=== PATIENT | female | born 1970 | race Caucasian/White ===

== ENCOUNTER 2017-12-11 16:32 | Emergency (ER) | payer MEDICAID ==
[~2017-12-11] VITALS: Ht 177.8 cm; Wt 117.5 kg
[2017-12-11] MEDS ORDERED: PANTOPRAZOLE 40 MG/10 ML VIAL IV STA (17:57)
[2017-12-11 18:17] LABS: Basophils # (auto) 0 uL; Eosinophils # (auto) 0.1 uL; Hemoglobin 12.3 g/dL (12.2-16.2); Monocytes # (auto) 0.6 uL; Nucleated Red Blood Cells % 0.1 %
[2017-12-11 18:19] LABS: Basophils % (auto) 0.9 % (0.0-2.0); Hematocrit 39.3 % (36.0-46.0); Lymphocytes # (auto) 1.9 uL; Lymphocytes % (auto) 32.4 % (10.0-50.0); Mean Corpuscular Hemoglobin 23.8 pg (28.0-32.0); Mean Corpuscular Hgb Conc. 31.4 g/dL (32.0-36.0); Mean Corpuscular Volume 75.9 fL (80.0-100.0); Monocytes % (auto) 9.8 % (0.0-12.0); Neutrophils # (auto) 3.2 uL; Neutrophils % (auto) 54.9 % (37.0-80.0); Platelet Count (auto) 400 10^3/uL (140-450); Red Blood Cells 5.17 10^6/uL (4.0-5.20); Red Cell Distribution Width 18.3 % (11.8-14.3); White Blood Cell 5.8 10^3/uL (4.4-10.8)
[2017-12-11 18:41] LABS: Alanine Aminotransferase 24 U/L (13-56); Albumin 3.5 g/dL (3.4-5.0); Alkaline Phosphatase 64 U/L (45-117); Anion Gap 7 (5-15); Aspartate Aminotransferase 15 U/L (15-37); BUN/Creatinine Ratio 16.2; Bilirubin, Total 0.2 mg/dL (0.2-1.0); Blood Urea Nitrogen 11 mg/dL (7-18); Calcium 8.7 mg/dL (8.5-10.1); Carbon Dioxide 21 mmol/L (21-32); Chloride 111 mmol/L (98-107); GFR African American 120 mL/min; GFR Non-African American 99 mL/min; Glucose 80 mg/dL (74-106); Magnesium 2.6 mg/dL (1.6-2.6); Potassium 4.2 mmol/L (3.5-5.1); Sodium 139 mmol/L (136-145); Total Protein 7.2 g/dL (6.4-8.2)
[2017-12-11 20:15] VITALS: BP 137/84
== END 2017-12-11 20:22 | disposition home or self-care (01) ==
LOC: ER 16:40
DX: K21.9 Gastro-esophageal reflux disease without esophagitis (principal); F17.210 Nicotine dependence, cigarettes, uncomplicated
CPT/HCPCS: 36415; 71046; 74176; 80053; 83735; 84484; 85025; 93005; 96374; 99285; C9113

== ENCOUNTER 2018-02-20 21:10 | Emergency (ER) | payer MEDICAID ==
[~2018-02-20] VITALS: Ht 177.8 cm; Wt 115.7 kg
[2018-02-20 21:29] VITALS: BP 149/92
[2018-02-20] MEDS ORDERED: LIDOCAINE 2%HCL (LOCAL ANESTH.) INJ 10ml MDV IJ ONE ×2 (22:30)
[2018-02-20] MEDS ORDERED: TRIAMCINOLONE 40MG/ML 1ML VIAL IM ONE (22:30)
[2018-02-20] MEDS ORDERED: LIDOCAINE 2% (LOCAL ANESTH.) PF 5ml SDV ONE (22:33)
== END 2018-02-20 23:08 | disposition home or self-care (01) ==
LOC: ER 21:10
DX: G44.209 Tension-type headache, unspecified, not intractable (principal); F17.210 Nicotine dependence, cigarettes, uncomplicated
CPT/HCPCS: 20552; 99284; J2001; J3301

== ENCOUNTER → 2018-08-05 | Outpatient (CLI) | payer MEDICAID ==
[2018-08-05 10:22] LABS: Urine Bacteria NONE SEEN /hpf (None Seen); Urine Blood 2+ /uL (Negative); Urine WBC 4 /hpf (0 - 5)
[2018-08-05 10:24] LABS: Basophils # (auto) 0 uL; Eosinophils # (auto) 0 uL; Hemoglobin 12.9 g/dL (12.2-16.2); White Blood Cell 3.9 10^3/uL (4.4-10.8)
[2018-08-05 10:25] LABS: Basophils % (auto) 0.1 % (0.0-2.0); Eosinophils % (auto) 0.9 % (0.0-7.0); Hematocrit 39.3 % (36.0-46.0); Lymphocytes # (auto) 1.1 uL; Lymphocytes % (auto) 27.1 % (10.0-50.0); Mean Corpuscular Hemoglobin 25.7 pg (28.0-32.0); Mean Corpuscular Hgb Conc. 32.8 g/dL (32.0-36.0); Mean Corpuscular Volume 78.3 fL (80.0-100.0); Monocytes # (auto) 0.3 uL; Monocytes % (auto) 8.3 % (0.0-12.0); Neutrophils # (auto) 2.5 uL; Neutrophils % (auto) 63.6 % (37.0-80.0); Platelet Count (auto) 425 10^3/uL (140-450); Red Blood Cells 5.02 10^6/uL (4.0-5.20); Red Cell Distribution Width 17.1 % (11.8-14.3)
[2018-08-05 10:44] LABS: Cholesterol 170 mg/dL (< 200); HDL Cholesterol 61 mg/dL (40-59); LDL Cholesterol 99 mg/dL (< 100); Triglycerides 120 mg/dL (< 150)
[2018-08-05 10:48] LABS: Hepatitis B Surface Antibody Positive
[2018-08-05 11:19] LABS: Hepatitis B Surface Antigen Negative (Negative)
[2018-08-05 11:27] LABS: Hepatitis A Total Antibody Positive
[2018-08-05 11:43] LABS: Hepatitis B Core Total AB Positive; Hepatitis C Antibody Negative (Negative)
[2018-08-06 05:06] LABS: RPR Non Reactive (Non Reactive)
== END | disposition home or self-care (01) ==
LOC: LAB 09:50
PROVIDERS: ATTEND Specialist
DX: Z11.3 Encounter for screening for infections with a predominantly sexual mode of transmission (principal); N39.0 Urinary tract infection, site not specified; Z20.2 Contact with and (suspected) exposure to infections with a predominantly sexual mode of transmission
CPT/HCPCS: 36415; 80061; 81001; 84443; 85025; 86592; 86695; 86696; 86703; 86704; 86706; 86708; 86803; 87086; 87340

== ENCOUNTER 2019-04-05 04:30 | Emergency (ER) | payer MEDICAID | END 2019-04-05 08:37 | disposition left against medical advice (07) | LOC: ER 04:30 | DX: J02.9 Acute pharyngitis, unspecified (principal); F17.210 Nicotine dependence, cigarettes, uncomplicated | CPT/HCPCS: 71046 ==